=== PATIENT | female | born 1960 | race Caucasian/White ===

== ENCOUNTER 2019-03-15 08:19 | Day surgery (SDC) | payer OTHER ==
[2019-03-12 15:23] VITALS: BMI 31.3
[~2019-03-15 08:19] MED LIST: HYDROmorphone 0.5 MG/0.5 ML SYRINGE IVP PRN; LACTATED RINGERS 1,000 ML IV SCH; ONDANSETRON 4 MG/2 ML VIAL IVP PRN
[2019-03-15] MEDS ORDERED: LIDOCAINE 1% 20 ML VIAL (10MG/ML) FOR IV START INTRADERMA ONE (08:47)
[2019-03-15] MEDS ORDERED: MIDAZOLAM 2 MG/2 ML VIAL IVP ONE (09:09)
[2019-03-15] MEDS ORDERED: DEXAMETHASONE SOD PHOSPHATE 10 MG/ML 1 ML VIAL IV ONE (09:41)
[2019-03-15] MEDS ORDERED: SUCCINYLCHOLINE CHLORIDE 100 MG/5 ML SYR IV ONE (10:51)
[2019-03-15] MEDS ORDERED: MIDAZOLAM 2 MG/2 ML VIAL ONE (10:51)
[2019-03-15] MEDS ORDERED: ROPIVACAINE 5 MG/ML 30 ML VIAL ONE (10:51)
[2019-03-15] MEDS ORDERED: LIDOCAINE 1% INJ 10MG/ML (20 ML MDV) ONE (10:51)
[2019-03-15] MEDS ORDERED: DEXAMETHASONE SOD PHOSPHATE 4 MG/ML 1 ML VIAL ONE (10:51)
[2019-03-15] MEDS ORDERED: fentaNYL (PF) 50 MCG/ML 2 ML AMP ONE (10:51)
[2019-03-15] MEDS ORDERED: PROPOFOL 10 MG/ML 20 ML VIAL IV ONE (10:51)
[2019-03-15] MEDS ORDERED: ePHEDrine SULFATE/0.9% NACL/PF 50 MG/5 ML SYRINGE IV ONE (10:51)
[2019-03-15] MEDS ORDERED: LACTATED RINGERS 1,000 ML IV ONE (13:12)
--- NOTE | 2019-03-15 13:38 | FL ---
EXAMINATION TYPE: FL guidance operating room, XR foot limited LT DATE OF EXAM: 03/15/2019 CLINICAL HISTORY: Hallux valgus left foot TECHNIQUE: Fluoroscopy. Limited 2 views left foot. COMPARISON: None. FINDINGS: Fluoroscopic guidance was provided during left foot surgical procedure performed by Dr. Gallito tao. A total of 86 seconds of fluoroscopic time was utilized during the procedure and 8 spot intr aoperative images are acquired. Intraoperative images acquired show advancement of hardware and placement of radiolucent surgical dev ice at level of first metatarsophalangeal joint. IMPRESSION: As Above.
[2019-03-15 14:04] VITALS: TEMP 98
--- NOTE | 2019-03-15 14:07 | P.OP ---
Date of Procedure: 03/15/19 Preoperative Diagnosis: 1. Left hallux valgus and midfoot arthritis 2. Left gastrocnemius contracture Postoperative Diagnosis: Same Procedure(s) Performed: 1. Left gastrocnemius recession 2. Modified Serra procedure for correction of hallux valgus Anesthesia: [facility] Surgeon: Kishore Hardy Vulcan Crewmember #1: Cande Mendosa Estimated Blood Loss (ml): 10 IV fluids (ml): 1,200 Condition: stable Disposition: PACU Indications for Procedure: The patient is a very pleasant previously healthy 58-year-old female with a long-standing history of problems with her left foot. She came to see me for symptomatic bunion and midfoot arthritis. She failed a long course of nonsurgical treatment. We discussed both nonsurgical and surgical treatment. The patient decided she wanted to wait her options. She called back stating that since she had failed a long course of nonsurgical treatment she wanted to go forward with surgery. I recommendation was to correct her hypermobile hallux valgus with a modified Lapidus procedure, fuse her symptomatic second tarsometatarsal joint, and offload her midfoot with a gastrocnemius recession. We discussed the potential risks and complications of surgery including but not limited to risk of anesthesia, superficial infection, deep infection, delayed wound healing, superficial wound necrosis, deep wound necrosis, nonunion the fusion site, malunion of the fusion site, over correction of the deformity, under correction of the deformity, recurrence, symptomatically hardware, DVT, PE, other medical complications, and possibly loss of life or limb. The patient voiced understanding of these and provided her consent to go forward with surgery. Operative Findings: After correcting the deformity and making cuts of the first metatarsal base and medial cuneiform there is an asymmetric cut off of the first metatarsal base. When I attempted to compress the joint there was plantar gapping with close to 50% of the joint not being compressed. On fluoroscopic evaluation the cuneiform cut appeared flat but there was an angled cut of the first metatarsal base creating an oblique cut from dorsal proximal to plantar distal. I initially attempted to freehand and make a cut dorsally. This inadvertently dorsiflex the joint. I then attempted to place the cut guide to make a flat cut. Eventually I was able to achieve flat and symmetric cuts but there was over a 1 cm gap that would not compressed down. At this point I went out to the waiting room to discuss treatment options with the patient's . We discussed getting the joint closed down as close to possible packing with crushed cancellus graft. In my opinion this would have a very high rate of failure and would significantly help shorten the first ray. My recommendation was to use structural allograft to fill the gap and bridge the graft with a plate. Unfortunately we did not have precontoured Lapidus grafts at our facility or comparable structural allograft it could be contoured. Due to this I recommended closing the wound and coming back at a later date. The patient's will obviously upset that the procedure had not been completed completely understood and agreed with this. Description of Procedure: The patient was identified in preoperative holding and the correct left foot was marked my initials. I reviewed the consent form with the patient and her husb and. All their questions were answered. The patient was then brought back to the operating room by anesthesia after getting a nerve block. She was positioned on the OR table where a general anesthetic and preoperative antibiotics were given. A tourniquet was applied to the proximal aspect of the left leg. The left leg was then prepped and draped in the standard sterile fashion. Prior to starting surgery timeout was performed identifying the correct patient, operative extremity, and procedure. The leg was elevated, exsanguinated with an Esmarch bandage, and the tourniquet was inflated to 250 mmHg. I began by performing a gastrocnemius recession. A 3 cm longitudinal incision was made 1 thumb breadth posterior to the tibia at the distal medial muscle belly of the gastrocnemius. Dissection was carried down carefully to the subcutaneous tissue with tenotomy scissors. The superficial fascia was identified and sharply incised. I bluntly developed interval between the gastrocnemius aponeurosis and superficial fascia in between the gastrocnemius aponeurosis and soleus fascia. The sural nerve was seen to be densely adherent to the superficial fascia. Modified right angle retractors were placed isolating the gastrocnemius aponeurosis. The gastrocnemius aponeurosis was then cut from medial to lateral in its entirety. The sural nerve was seen to be intact. The wound was thoroughly irrigated and closed in layers. Attention was then turned to the dorsal midfoot. A longitudinal incision was marked out from the proximal pole the medial cuneiform extending distally to the midshaft of the first metatarsal centered between the first and second metatarsals. Skin incision was made with a scalpel and dissection was carried down carefully to the subcutaneous tissue. The EHL tendon sheath was incised and the tendon was retracted laterally. The capsule was opened over the first tarsometatarsal joint. An osteotome and saw were used to plane the first metatarsal base and open the plantar capsule to facilitate rotation of the metatarsal. A stab incision was made distally in the first webspace. The lateral capsule and sesamoid suspensory ligaments were sharply released. A joystick was then placed 1 cm distal to the first tarsometatarsal joint uses a joystick to correct for rotation. Fluoroscopy was brought in and I verified that I could manually reduce the intermetatarsal angle and cover the sesamoids with gentle pressure over the distal first metatarsal and using the joystick. A stab incision was made at the plantar lateral base the first metatarsal and a 2.5 mm fulcrum was placed. A stab incision was made over the midshaft the second metatarsal. The position was placed with 1 sarahi over the lateral shaft of the second metatarsal and the other sarahi over the first metatarsal. I gently rotated the first metatarsal joystick pin and then tighten the positioner to 2 fingerbreadth tightness. Clinically this nicely corrected the hallux valgus deformity. Fluoroscopy was brought in to verify reduction. On the AP view the intermetatarsal angle was closed down and the metatarsal head cover the sesamoids. A pin was placed through the positioner holding the reduction. A joint seeker was placed in the lateral corner of the joint to "make a corner" with the fulcrum. A low angle cut guide was placed over the joint seeker and pinned into place. Cuts were made off of the first metatarsal base and medial cuneiform. The positioner and K wire were removed followed by the cut guide. A compressor distractor was placed and gently distracted opening the joint. Bone was removed and the joint was thoroughly irrigated. Both the exposed portion of the cuneiform and metatarsal were fenestrated with a 2.0 mm drill bit. At this point I attempted to close down the joint with a compressor. Dorsally the joint appeared to be compressed but there was plantar gapping. Fluoroscopy showed significant plantar gapping with less than 50% compression between the medial cuneiform and first metatarsal base. The compressor was opened and the joint inspected. There appeared to be an obliquely oriented cut the first metatarsal. I attempted to freehand with the saw but this did not completely correct the deformity. I then elected to place the cut guide back on the first metatarsal and make a flat cut through the cut guide. At this point there was a flat cut but over 1 cm gap in the joint. I attempted to manually compress the joint but was unable to get bony apposition. I placed the compressor device over pins in the medial cuneiform and first metatarsal was only able to get a small amount of compression dorsally and there is significant deformity distally in the first ray. At this point I went out and spoke with the patient's on treatment options. We discussed getting the joint as close as possible and filling the void with crushed cancellus allograft a dorsal plate. In my opinion this would've had a very high failure rate. My recommendation was to use a precontoured Lapidus graft to prevent shortening of the first ray and to get adequate bony compression. The patient's understood this and agreed that this was likely the patient's best option. The wound was thoroughly irrigated and gently closed. A sterile dressing was applied followed by a bulky Otero splint. The patient was awoken from her anesthetic transferred to a [facility], and brought to recovery entire procedure well. Plan: The patient is an to discharge home as an outpatient. He will follow-up in the office on Tuesday and we will make plans for return to the operating room to finish her procedure.
[2019-03-15 14:59] VITALS: BP 109/72; PULSE 87; RESP 18
--- NOTE | 2019-03-15 19:26 | P.ANPRN ---
Procedure Note - Anesthesia - Nerve Block Performed Left Popliteal Single Time Out Performed: Yes Date of Procedure: 03/15/19 Procedure Start Time: : Procedure Stop Time: : Location of Patient Procedure: PreOp Indication: Acute Post-Operative Pain, Requested by Surgeon Sedation Type: Sedate with meaningful contact maintained Preparation: Sterile Prep Position: Supine Needle Types: Pajunk Needle Gauge: 21 Ultrasound used to visualize needle placement: Yes Ultrasound used to observe medication spread: Yes Blood Aspirated: No Pain Paresthesia on Injection Noted: No Resistance on Injection: Normal Image Stored and Saved: Yes Events: Uneventful and Well Tolerated
== END 2019-03-15 15:39 | disposition home or self-care (01) ==
LOC: OR 08:19
PROVIDERS: ATTEND Orthopaedic Surgery
DX: M20.12 Hallux valgus (acquired), left foot (principal); M19.072 Primary osteoarthritis, left ankle and foot; M62.462 Contracture of muscle, left lower leg; R63.5 Abnormal weight gain; Z68.31 Body mass index [BMI] 31.0-31.9, adult; Z87.891 Personal history of nicotine dependence; Z91.030 Bee allergy status
CPT/HCPCS: 27687; 28297; 64445; 76942; 73620; C1713; J2250; J1100 ×2; J0690; J2405; J2001; J3010; J2795; J0330; J2704; 64447

== ENCOUNTER 2019-03-22 06:27 | Day surgery (SDC) | payer OTHER ==
[2019-03-20 11:08] VITALS: BMI 32.1
[~2019-03-22 06:27] MED LIST changes: +DEXAMETHASONE SOD PHOSPHATE 10 MG/ML 1 ML VIAL IV ONE; +MIDAZOLAM 2 MG/2 ML VIAL IV PRN; +ONDANSETRON 4 MG/2 ML VIAL IVP ONE; -ONDANSETRON 4 MG/2 ML VIAL IVP PRN; +SCOPOLAMINE 1.5MG/72HR PATCH TRANSDERM ONE
[2019-03-22] MEDS ORDERED: LIDOCAINE 1% 20 ML VIAL (10MG/ML) FOR IV START INTRADERMA ONE (07:00)
[2019-03-22] MEDS ORDERED: MIDAZOLAM 2 MG/2 ML VIAL IVP ONE (07:44)
[2019-03-22] MEDS ORDERED: fentaNYL (PF) 50 MCG/ML 2 ML AMP IVP ONE (07:45)
[2019-03-22] MEDS ORDERED: METOPROLOL TARTRATE 5 MG/5 ML VIAL IVP ONE (08:03)
[2019-03-22] MEDS ORDERED: ROCURONIUM BROMIDE 10 MG/ML 10 ML VIAL IV ONE (08:03)
[2019-03-22] MEDS ORDERED: LIDOCAINE 1% INJ 10MG/ML (20 ML MDV) ONE (08:03)
[2019-03-22] MEDS ORDERED: SUCCINYLCHOLINE CHLORIDE 100 MG/5 ML SYR IV ONE (08:03)
[2019-03-22] MEDS ORDERED: DEXAMETHASONE SOD PHOSPHATE 4 MG/ML 1 ML VIAL ONE (08:03)
[2019-03-22] MEDS ORDERED: MIDAZOLAM 2 MG/2 ML VIAL ONE (08:03)
[2019-03-22] MEDS ORDERED: fentaNYL (PF) 50 MCG/ML 2 ML AMP ONE (08:03)
[2019-03-22] MEDS ORDERED: ROPIVACAINE 5 MG/ML 30 ML VIAL ONE (08:03)
[2019-03-22] MEDS ORDERED: PROPOFOL 10 MG/ML 20 ML VIAL IV ONE (08:03)
[2019-03-22] MEDS ORDERED: ePHEDrine SULFATE/0.9% NACL/PF 50 MG/5 ML SYRINGE IV ONE (08:03)
--- NOTE | 2019-03-22 08:14 | P.ANPRN ---
Procedure Note - Anesthesia - Nerve Block Performed Left Popliteal Single Time Out Performed: Yes Date of Procedure: 03/22/19 Procedure Start Time: 07:43 Procedure Stop Time: 07:50 Location of Patient Procedure: PreOp Indication: Acute Post-Operative Pain, Requested by Surgeon ([email or web address]) Specifically requested for management of pain by DrCipriano: Kishore Hardy Sedation Type: Sedate with meaningful contact maintained Preparation: Sterile Prep Position: Right Lateral Catheter: None Needle Types: Pajunk Needle Gauge: 21 Ultrasound used to visualize needle placement: Yes Ultrasound used to observe medication spread: Yes Injectate: 0.5% Ropivacaine (see comment for volume) (25cc) Blood Aspirated: No Pain Paresthesia on Injection Noted: No Resistance on Injection: Normal Image Stored and Saved: Yes Events: Uneventful and Well Tolerated
[2019-03-22] MEDS ORDERED: LACTATED RINGERS 1,000 ML IV ONE (10:05)
--- NOTE | 2019-03-22 10:26 | XR ---
EXAMINATION TYPE: XR foot complete LT DATE OF EXAM: 03/22/2019 COMPARISON: 03/15/2019 HISTORY: Intraoperative images TECHNIQUE: 5 views are submitted. FINDINGS: Postsurgical changes appear in near-anatomic alignment IMPRESSION: 1. Postsurgical changes
--- NOTE | 2019-03-22 10:27 | FL ---
EXAMINATION TYPE: FL guidance operating room DATE OF EXAM: 03/22/2019 HISTORY: Flouroscopy time 20 seconds of fluoroscopy provided. IMPRESSION: 1. Fluoroscopy time.
--- NOTE | 2019-03-22 10:42 | P.OP ---
Date of Procedure: 03/22/19 Preoperative Diagnosis: 1. Left hallux valgus 2. Left midfoot arthritis Postoperative Diagnosis: Same Procedure(s) Performed: 1. Arthrodesis of multiple mid tarsal joints, left foot (first and second tarsometatarsal joint arthrodesis) 2. Application of short leg splint by physician, left leg Anesthesia: [facility] Surgeon: Kishore Hardy Supervisor Type Disk Quality Control #1: Cande Mendosa Estimated Blood Loss (ml): 10 IV fluids (ml): 1,200 Pathology: none sent Condition: stable Disposition: PACU Indications for Procedure: The patient is very pleasant previously healthy 58-year-old female whose had a long-standing history of problems with her left foot. The patient failed nonsurgical treatment and was brought to surgery last week for an elective hallux valgus repair with a modified Lapidus type procedure and an arthrodesis of the second tarsometatarsal joint. During the joint preparation of the first tarsometatarsal joint there was an asymmetric cut at the base of the first metatarsal. After several attempts to freehand the cut to make the bony surfaces flat to allow for apposition for fusion there was significant shortening and I was unable to adequately decompress the bony surfaces without significant deformity and shortening. Rather then perform suboptimal work I talked to the patient's and explained the situation. My recommendation was to close the wound and return to the OR at a later date with precontoured grafts to span the defect across the first tarsometatarsal joint. The patient's understood the situation and agree that this would likely result in the best outcome. The wound was thoroughly irrigated and closed. I met with the patient and her in the office earlier this week to discuss revision fusion with a joint spanning graft and fusion of the second tarsometatarsal j oint. We discussed all the potential risks and complications of surgery including but not limited to risk of infection, damage to local blood vessels or nerves, nonunion, malunion, under correction, overcorrection, symptomatically hardware, DVT, PE, and other medical complications, and possibly loss of life or limb. The patient and her understanding house of all these are the most common complications other, less common complications are possible. They provided their verbal and written consent to go forward with surgery. Description of Procedure: The patient was identified in preoperative holding and the correct left leg was marked with my initials. I reviewed the consent form with the patient and her . All their questions were answered. The patient was given a block by anesthesia. She was then brought back to the OR and positioned on the OR table where a general anesthetic and preoperative antibiotics were given. A tourniquet was applied the proximal aspect of the left leg. All bony prominences were well-padded. The splint was removed and her wounds appeared to be well healing with no signs of infection. The left leg was then prepped and draped in the standard sterile fashion. Prior to starting surgery timeout was performed identifying the correct patient, operative extremity, and procedure. The leg was then elevated, exsanguinated with an Esmarch bandage, and the tourniquet was inflated to 250 mmHg. I began by removing the sutures in the longitudinal incision over the first ray. Dissection was carried down carefully through the subcutaneous tissue to the level of the first tarsometatarsal joint. There was early clot within the joint which was removed and carefully passed off to the back table to soak the allogra ft in. The wound was thoroughly irrigated. The bony cuts appeared flat and flush. At this point I used the trial lollipops and a 1 cm trial felt like it adequately compressed the bony surfaces and restored length to the first ray. Its position was verified with fluoroscopy. A 1 cm precontoured allograft wedge for the first tarsometatarsal joint was then dispensed. It was soaked in saline with the clot from within the wound. The bony surfaces were thoroughly fenestrated with a 2.0 mm drill bit to facilitate fusion. The graft was then carefully placed within the joint, the bony surfaces were manipulated until the first ray was in a plantigrade position and then an eccentric we placed 0.0625 K wire was driven from the medial cuneiform, across the graft, and into the first metatarsal. The position of the graft was verified clinically and with fluoroscopy. I then contoured a dorsal plate over the first ray. It was pinned both in the cuneiform and metatarsal. I placed 2 nonlocking 3.5 mm screws in the cuneiform nicely bringing the plate down to bone proximally. I then placed a nonlocking 3.5 mm screw through the most distal slot of the eccentric on the first metatarsal. As the screw was brought down the olive tipped K wires were removed and compression was generated through the plate across the graft. An additional 2 nonlocking 3.5 mm screws were placed distally in the metatarsal. Attention was then turned to the second tarsometatarsal joint. K wires were placed in the middle cuneiform and second metatarsal and a Hintermann distractor was applied nicely exposing the joint. Using a series of osteotomes and curettes articular cartilage from the middle cuneiform and second metatarsal base were used to remove the remaining articular cartilage. The wound was tho roughly irrigated. A 2.0 mm drill bit was used to thoroughly fenestrated the exposed subchondral bone. The joint was held reduced and a K wire was placed across the joint holding it in a reduced position. Its position was verified with fluoroscopy. I then contoured a 4 hole midfoot fusion plate centered over the second tarsometatarsal joint. Its position was verified with fluoroscopy and it was held in place with an olive tipped K wire. A nonlocking 2.7 mm screws placed the most proximal hole of the plate in the middle cuneiform. I then placed a nonlocking 2.7 mm screw in the most distal slot of an eccentric hold the second metatarsal. As the screw was brought down tipped K wires were removed and compression was generated across the joint through the plate. A final nonlocking 2.7 mm screw was placed in the most distal hole of the plate. There was a small bony bump over the distal first metatarsal. A small incision was made over the medial eminence and dissection was carried down carefully to the subcutaneous tissue and a longitudinal capsulotomy was performed. Using a small microsagittal saw the head of the first metatarsal was contoured taking care to not remove bone lateral to the sulcus. All wounds were thoroughly irrigated and closed in layers. I verified that all instrument, sponge, and sharp counts were correct. Sterile dressings were applied. A well-padded bulky Otero splint was placed with the ankle at neutral. The patient was then awoken from her anesthetic, transferred from the OR table to a gurney, and brought to recovery having time of the procedure well. Cande Mendosa PA-C was required as a skilled senior care assistant for patient positioning, surgical exposure, retraction, placement of hardware, closure of wounds, and application of splint. Plan: The patient is going to be discharged home as an outpatient. She is trained strictly nonweightbearing on her operative extremity. She'll be given a prescription for oral narcotic pain medications, stool softener, and aspirin for DVT prophylaxis. She will follow-up in the office in 2 weeks for splint removal, wound check, and nonweightbearing x-rays the left foot out of her splint.
[2019-03-22 11:01] VITALS: TEMP 97.3
[2019-03-22 11:36] VITALS: RESP 18
[2019-03-22 12:16] VITALS: BP 124/78; PULSE 82
== END 2019-03-22 12:45 | disposition home or self-care (01) ==
LOC: OR 06:27
PROVIDERS: ATTEND Orthopaedic Surgery
DX: M19.072 Primary osteoarthritis, left ankle and foot (principal); M20.12 Hallux valgus (acquired), left foot; F39 Unspecified mood [affective] disorder; Z87.891 Personal history of nicotine dependence; Z79.899 Other long term (current) drug therapy; Z97.3 Presence of spectacles and contact lenses; Z91.030 Bee allergy status
CPT/HCPCS: 64450; 76942; 73630; 28730; C1713; J2250; J1100 ×2; J0690; J2405; J2001; J3010; J2795; J0330; J2704